=== PATIENT | male | born 1995 | race Caucasian/White ===

== ENCOUNTER 2019-07-22 20:47 | Emergency (ER) | payer SELFPAY ==
[~2019-07-22] VITALS: Ht 167.6 cm; Wt 64.9 kg
[~2019-07-22 20:47] MED LIST: IBUP800T48 PO; METH500T PO
[2019-07-22 20:55] VITALS: Ht 167.6 cm; Wt 64.9 kg
[2019-07-22] MEDS ORDERED: KETOROLAC 30 MG INJ IM STA (21:38)
[2019-07-22] MEDS ORDERED: METHOCARBAMOL 750 MG TAB PO ONE (22:00)
[2019-07-22 22:59] VITALS: BP 148/83; PULSE 68; RESP 16
== END 2019-07-22 23:00 | disposition home or self-care (01) ==
LOC: FTE 20:47
DX: M54.2 Cervicalgia (principal); R07.0 Pain in throat; V49.50XA Passenger injured in collision with unspecified motor vehicles in traffic accident, initial encounter
CPT/HCPCS: 96372; 99284; J1885